=== PATIENT | male | born 1980 | race Caucasian/White ===

== ENCOUNTER → 2016-04-26 | Outpatient (CLI) | payer BC ==
[2016-04-26 13:49] LABS: ANION GAP 9 MEQ/L (8-16); BLOOD UREA NITROGEN 28 MG/DL (7-18); CALCIUM LEVEL 9.5 MG/DL (8.5-10.1); CARBON DIOXIDE LEVEL 28 MEQ/L (21-32); CHLORIDE LEVEL 108 MEQ/L (98-107); CREATININE FOR GFR 1.23 MG/DL (0.70-1.30); GLOMERULAR FILTRATION RATE > 60.0 (>60); GLUCOSE, FASTING 104 MG/DL (70-105); SODIUM LEVEL 145 MEQ/L (136-145)
== END | disposition home or self-care (01) ==
LOC: M SMT 10:38
PROVIDERS: ATTEND Emergency Medicine
DX: I10 Essential (primary) hypertension (principal)

== ENCOUNTER → 2016-12-06 | Outpatient (CLI) | payer BC ==
[2016-12-06 14:00] LABS: ALBUMIN 3.6 GM/DL (3.2-5.2); ALKALINE PHOSPHATASE 59 U/L (45-117); ALT/SGPT 48 U/L (12-78); ANION GAP 10 MEQ/L (8-16); AST/SGOT 18 U/L (15-37); BILIRUBIN,TOTAL 0.3 MG/DL (0.2-1.0); BLOOD UREA NITROGEN 23 MG/DL (7-18); CALCIUM LEVEL 8.9 MG/DL (8.5-10.1); CARBON DIOXIDE LEVEL 25 MEQ/L (21-32); CHLORIDE LEVEL 108 MEQ/L (98-107); CHOLESTEROL LEVEL 140 MG/DL (<200); CREATININE FOR GFR 1.08 MG/DL (0.70-1.30); GLOMERULAR FILTRATION RATE > 60.0 (>60); GLUCOSE, FASTING 91 MG/DL (70-105); SODIUM LEVEL 143 MEQ/L (136-145); TOTAL PROTEIN 6.6 GM/DL (6.4-8.2); TRIGLYCERIDES LEVEL 414 MG/DL (<150)
== END ==
LOC: M SMT 08:11
PROVIDERS: ATTEND Emergency Medicine
DX: I10 Essential (primary) hypertension (principal)

== ENCOUNTER → 2017-01-05 | Outpatient (REF) | payer BC | LOC: M LAB REF 13:47 | PROVIDERS: ATTEND Emergency Medicine | DX: D36.7 Benign neoplasm of other specified sites (principal) ==

== ENCOUNTER → 2019-03-20 | Outpatient (REF) | payer BC ==
[2019-03-20 13:16] LABS: ALBUMIN 3.6 GM/DL (3.2-5.2); ALT/SGPT 110 U/L (12-78); BILIRUBIN,TOTAL 0.6 MG/DL (0.2-1.0); BLOOD UREA NITROGEN 17 MG/DL (7-18); CALCIUM LEVEL 8.9 MG/DL (8.5-10.1); CARBON DIOXIDE LEVEL 27 MEQ/L (21-32); CHLORIDE LEVEL 110 MEQ/L (98-107); CHOLESTEROL LEVEL 129 MG/DL (<200); CHOLESTEROL RISK RATIO 3.225 (<5); CREATININE FOR GFR 1.01 MG/DL (0.70-1.30); GLOMERULAR FILTRATION RATE > 60.0 (>60); GLUCOSE, FASTING 85 MG/DL (70-100); HDL CHOLESTEROL 40 MG/DL (>40); LDL CHOLESTEROL 73 MG/DL (<100); NON-HDL-C 89 MG/DL; POTASSIUM SERUM 4.4 MEQ/L (3.5-5.1); SODIUM LEVEL 143 MEQ/L (136-145); TOTAL PROTEIN 6.7 GM/DL (6.4-8.2); TRIGLYCERIDES LEVEL 78 MG/DL (<150)
== END ==
LOC: M LABDRAW1 12:18
PROVIDERS: ATTEND Physician Assistant Medical
DX: I10 Essential (primary) hypertension (principal)

== ENCOUNTER 2019-05-27 20:07 | Emergency (ER) | payer BC ==
[2019-05-27] MEDS ORDERED: LISI20TA19 (20:13)
[2019-05-27] MEDS ORDERED: OMEP-218 (20:13)
[2019-05-27] MEDS ORDERED: ATEN50TA2 (20:13)
[2019-05-27] MEDS ORDERED: ESCI10TA2 (20:13)
[2019-05-27] MEDS ORDERED: PERCOCET 5MG/325MG TAB PO ONE (20:30)
[2019-05-27] MEDS ORDERED: ONDANSETRON 4 MG ORAL DISINTEGRATING TAB (Q0162 PER 1MG) PO ONE (21:15)
[2019-05-27] MEDS ORDERED: ONDA4TAB6 PO (21:27)
[2019-05-27] MEDS ORDERED: NORC1TAB7 PO (21:27)
[2019-05-27] MEDS ORDERED: NORCO, ANEXSIA 5/325MG TABLET (HYDROcodone/ACETAMINOPHEN) PO ONE (21:30)
[2019-05-27 21:37] VITALS: BP 131/85
--- NOTE | 2019-05-28 08:08 | REP ---
Clinical: Left shoulder trauma . Technique: Internal rotation, external rotation, and Y view left shoulder . Findings: No acute fracture or dislocation. The acromioclavicular and glenohumeral joints are intact. No periarticular calcifications or degenerative changes are appreciated. Sub acromial space is normal. Surrounding soft tissues are unremarkable. Fracture along the lateral aspect of the left fourth rib cannot be excluded. Impression: Normal Left shoulder radiographs. Cannot exclude fracture involving the lateral aspect left fourth rib. Electronically Signed by Gagandeep Arnold MD 05/28/2019 08:00 A
--- NOTE | 2019-05-28 08:11 | REP ---
Clinical: Trauma. Technique: Frontal view of the chest with four views of the left hemithorax. Findings: Frontal view of the chest demonstrates no acute cardiopulmonary process. Acute fractures along the lateral aspect of the left fourth, fifth, and sixth ribs noted. Impression: Fractures along the left lateral 4th - 6th ribs. Electronically Signed by Gagandeep Arnold MD 05/28/2019 08:02 A
== END 2019-05-27 21:39 | disposition home or self-care (01) ==
LOC: M ED 20:07
DX: S22.42XA Multiple fractures of ribs, left side, initial encounter for closed fracture (principal); V86.52XA Driver of snowmobile injured in nontraffic accident, initial encounter; Y92.89 Other specified places as the place of occurrence of the external cause; I10 Essential (primary) hypertension; K21.9 Gastro-esophageal reflux disease without esophagitis; Z79.899 Other long term (current) drug therapy
CPT/HCPCS: 71101; 73010; 99284; Q0162

== ENCOUNTER → 2019-07-25 | Outpatient (CLI) | payer BC ==
[~2019-07-25] MED LIST: ATEN50TA2; ESCI10TA2; LISI20TA19; NORC1TAB7 PO; OMEP-218; ONDA4TAB6 PO
[2019-07-25 14:11] LABS: ALBUMIN 3.8 GM/DL (3.2-5.2); BILIRUBIN,DIRECT 0.2 MG/DL (0.0-0.2); BILIRUBIN,TOTAL 0.5 MG/DL (0.2-1.0)
== END ==
LOC: M PLALAB 10:04
PROVIDERS: ATTEND Physician Assistant Medical
DX: R94.5 Abnormal results of liver function studies (principal)

== ENCOUNTER → 2021-09-16 | Outpatient (REF) | payer OTHER ==
[~2021-09-16] MED LIST changes: +ESCI10TA16; -ESCI10TA2; -LISI20TA19; +LISI20TA35; +OMEP-173; -OMEP-218
[2021-09-16 13:19] LABS: HEMATOCRIT 44.2 % (42.0-52.0); HEMOGLOBIN 15.4 g/dl (13.5-17.5); MEAN CORPUSCULAR HEMOGLOBIN 32.6 pg (27.0-33.0); MEAN CORPUSCULAR HGB CONC 34.8 g/dl (32.0-36.5); MEAN CORPUSCULAR VOLUME 93.4 fl (80.0-96.0); PLATELET COUNT, AUTOMATED 134 10^3/uL (150-450); RED BLOOD COUNT 4.73 10^6/uL (4.30-6.10); WHITE BLOOD COUNT 5.6 10^3/uL (4.0-10.0)
[2021-09-16 13:26] LABS: ALBUMIN 3.7 GM/DL (3.2-5.2); ALT/SGPT 69 U/L (12-78); BILIRUBIN,TOTAL 0.8 MG/DL (0.2-1.0); BLOOD UREA NITROGEN 14 MG/DL (7-18); CALCIUM LEVEL 8.9 MG/DL (8.5-10.1); CARBON DIOXIDE LEVEL 26 MEQ/L (21-32); CHLORIDE LEVEL 109 MEQ/L (98-107); CHOLESTEROL LEVEL 156 MG/DL (<200); CHOLESTEROL RISK RATIO 4.727 (<5); CREATININE FOR GFR 1.18 MG/DL (0.70-1.30); GLOMERULAR FILTRATION RATE > 60.0 (>60); GLUCOSE, FASTING 87 MG/DL (70-100); HDL CHOLESTEROL 33 MG/DL (>40); LDL CHOLESTEROL 85 MG/DL (<100); NON-HDL-C 123 MG/DL; SODIUM LEVEL 139 MEQ/L (136-145); TOTAL PROTEIN 6.8 GM/DL (6.4-8.2); TRIGLYCERIDES LEVEL 191 MG/DL (<150)
== END ==
LOC: M SFHCADAM 08:40
PROVIDERS: ATTEND Physician Assistant
DX: I10 Essential (primary) hypertension (principal); K21.9 Gastro-esophageal reflux disease without esophagitis; Z13.220 Encounter for screening for lipoid disorders; Z13.1 Encounter for screening for diabetes mellitus

== ENCOUNTER → 2023-01-25 | Outpatient (REF) | payer OTHER ==
[2023-01-25 14:40] LABS: ALBUMIN 3.9 G/DL (3.2-5.2); ALKALINE PHOSPHATASE 87 U/L (46-116); ALT/SGPT 61 U/L (7.0-40); AST/SGOT 37 U/L (<34); BILIRUBIN,TOTAL 0.7 MG/DL (0.3-1.2); BLOOD UREA NITROGEN 17 MG/DL (9-23); CALCIUM LEVEL 9.7 MG/DL (8.5-10.1); CARBON DIOXIDE LEVEL 27 MMOL/L (20-31); CHLORIDE LEVEL 102 MMOL/L (98-107); CREATININE FOR GFR 0.98 MG/DL (0.70-1.30); GLOMERULAR FILTRATION RATE > 60.0 (>60); GLUCOSE, FASTING 106 MG/DL (60-100); SODIUM LEVEL 140 MMOL/L (136-145)
== END ==
LOC: M SFHCADAM 11:16
PROVIDERS: ATTEND Physician Assistant
DX: K21.9 Gastro-esophageal reflux disease without esophagitis (principal); I10 Essential (primary) hypertension

== ENCOUNTER → 2024-03-26 | Outpatient (REF) | payer OTHER ==
[~2024-03-26] MED LIST changes: +ONDA-282 PO; -ONDA4TAB6 PO
[2024-03-26 13:49] LABS: ALBUMIN 3.7 G/DL (3.2-5.2); ALKALINE PHOSPHATASE 78 U/L (40-129); ALT/SGPT 62 U/L (7.0-40); AST/SGOT 32 U/L (<34); BILIRUBIN,TOTAL 0.7 MG/DL (0.3-1.2); BLOOD UREA NITROGEN 17 MG/DL (9-23); CARBON DIOXIDE LEVEL 28 MMOL/L (20-31); CHLORIDE LEVEL 105 MMOL/L (98-107); CHOLESTEROL LEVEL 178 MG/DL (<200); CHOLESTEROL RISK RATIO 4.51 (<5); CREATININE FOR GFR 0.96 MG/DL (0.70-1.30); GLOMERULAR FILTRATION RATE > 60.0 (>60); GLUCOSE, FASTING 85 MG/DL (60-100); HDL CHOLESTEROL 39.4 MG/DL (>40); LDL CHOLESTEROL 92.6 MG/DL (<100); NON-HDL-C 138.6 MG/DL; POTASSIUM SERUM 4.5 MMOL/L (3.5-5.1); SODIUM LEVEL 141 MMOL/L (136-145); TOTAL PROTEIN 6.8 G/DL (5.7-8.2); TRIGLYCERIDES LEVEL 230 MG/DL (<150)
[2024-03-26 13:52] LABS: HEMATOCRIT 45.8 % (42.0-52.0); HEMOGLOBIN 15.6 g/dl (13.5-17.5); MEAN CORPUSCULAR HEMOGLOBIN 31.7 pg (27.0-33.0); MEAN CORPUSCULAR HGB CONC 34.1 g/dl (32.0-36.5); MEAN CORPUSCULAR VOLUME 93.1 fl (80.0-96.0); PLATELET COUNT, AUTOMATED 157 10^3/uL (150-450); RED BLOOD COUNT 4.92 10^6/uL (4.30-6.10); WHITE BLOOD COUNT 5.6 10^3/uL (4.0-10.0)
[2024-03-26 14:10] LABS: HEMOGLOBIN A1c 4.8 % (4.0-6.0)
== END ==
LOC: M SFHCADAM 08:10
PROVIDERS: ATTEND Physician Assistant
DX: Z28.21 Immunization not carried out because of patient refusal (principal); Z12.11 Encounter for screening for malignant neoplasm of colon; I10 Essential (primary) hypertension; F41.9 Anxiety disorder, unspecified; E66.9 Obesity, unspecified; F10.10 Alcohol abuse, uncomplicated

== ENCOUNTER → 2024-12-19 | Outpatient (CLI) | payer SELFPAY ==
[~2024-12-19] MED LIST changes: +ATEN25TA PO; +LEXA5TAB13 PO; +LISI20TA35 PO; +OMEP1CAP73 PO
== END ==
LOC: M OUTALCOH 09:18
PROVIDERS: ATTEND Psychiatry & Neurology Psychiatry
DX: F10.10 Alcohol abuse, uncomplicated (principal)

== ENCOUNTER → 2025-01-22 | Outpatient (REF) | payer BC, OTHER | LOC: M SFHCPLAZ 15:07 | DX: J06.9 Acute upper respiratory infection, unspecified (principal) ==

== ENCOUNTER → 2025-02-18 | Outpatient (REF) | payer BC ==
[2025-02-18 13:49] LABS: ALT/SGPT 39.0 U/L (7.0-40); AST/SGOT 25.0 U/L (<34); CALCIUM LEVEL 9.4 MG/DL (8.5-10.1); CARBON DIOXIDE LEVEL 28.0 MMOL/L (20-31); CHLORIDE LEVEL 104.0 MMOL/L (98-107); CREATININE FOR GFR 1.04 MG/DL (0.70-1.30); GLOMERULAR FILTRATION RATE 89.7 (>60); POTASSIUM SERUM 4.8 MMOL/L (3.5-5.1); SODIUM LEVEL 142.0 MMOL/L (136-145)
== END ==
LOC: M SFHCADAM 08:41
PROVIDERS: ATTEND Physician Assistant
DX: I10 Essential (primary) hypertension (principal); F10.10 Alcohol abuse, uncomplicated